=== PATIENT | female | born 1990 | race Caucasian/White ===

== ENCOUNTER 2019-05-21 05:26 | Emergency (ER) | payer SELFPAY ==
[~2019-05-21] VITALS: Ht 170.1 cm; Wt 77.1 kg
[~2019-05-21 05:26] MED LIST: CIPROFLOXACIN500 MG PO; NAPROSYN500 MG PO; PYRIDIUM200 MG PO; ZOVIRAX800 MG PO
== END 2019-05-21 06:58 | disposition home or self-care (01) ==
LOC: ED 05:26
DX: H10.9 Unspecified conjunctivitis (principal); F17.200 Nicotine dependence, unspecified, uncomplicated

== ENCOUNTER → 2021-10-13 | Outpatient (CLI) | payer OTHER | END | disposition home or self-care (01) | LOC: COVID19 16:16 | PROVIDERS: ATTEND Internal Medicine | DX: Z11.52 Encounter for screening for COVID-19 (principal) ==

== ENCOUNTER 2023-03-21 07:53 | Emergency (ER) | payer SELFPAY ==
[~2023-03-21] VITALS: Ht 170.1 cm; Wt 77.1 kg
[2023-03-21] MEDS ORDERED: TOBRADEX 0.3-0.15 ML OPH (08:21)
[2023-03-21] MEDS ORDERED: AMOX-CLAV 875-1 EACH PO (08:21)
== END 2023-03-21 08:28 | disposition home or self-care (01) ==
LOC: ED 07:53
DX: H10.9 Unspecified conjunctivitis (principal); L03.213 Periorbital cellulitis

== ENCOUNTER 2024-07-25 09:15 | Emergency (ER) | payer MEDICAID ==
[~2024-07-25] VITALS: Wt 81.6 kg
[~2024-07-25 09:15] MED LIST changes: +AMOX-CLAV 875-1 EACH PO; +TOBRADEX 0.3-0.15 ML OPH
[2024-07-25] MEDS ORDERED: diphenhydrAMINE hydrochloride 50 MG/ML VIAL IV ONE (09:35)
[2024-07-25] MEDS ORDERED: Dexamethasone Sodium Phospha 20 MG/5 ML VIAL IV ONE (09:35)
[2024-07-25] MEDS ORDERED: FAMOTIDINE 50 ML IV ONE (09:35)
[2024-07-25] MEDS ORDERED: KEFLEX 500 MG E2 CAP PO (09:45)
== END 2024-07-25 12:30 | disposition left against medical advice (07) ==
LOC: ED 09:15
DX: L02.01 Cutaneous abscess of face (principal); Z88.8 Allergy status to other drugs, medicaments and biological substances; Z98.890 Other specified postprocedural states; Z90.89 Acquired absence of other organs; Z53.29 Procedure and treatment not carried out because of patient's decision for other reasons

== ENCOUNTER 2025-01-17 16:55 | Emergency (ER) | payer MEDICAID ==
[~2025-01-17] VITALS: Ht 170.1 cm; Wt 81.6 kg
[~2025-01-17 16:55] MED LIST changes: +KEFLEX 500 MG E2 CAP PO
[2025-01-17] MEDS ORDERED: Tdap Vaccine 0.5 ML SYR (Adult Vaccine) IM ONE (17:35)
[2025-01-17] MEDS ORDERED: MORPHINE Sulfate 2 MG/ML SYR IM ONE (17:35)
[2025-01-17] MEDS ORDERED: Ondansetron Hydrochloride 4 MG TAB PO ONE (17:40)
[2025-01-17] MEDS ORDERED: Lidocaine Hydrochloride 2% 10 ML AMP SC ONE (18:40)
[2025-01-17] MEDS ORDERED: Bacitracin Zinc/Neomycin/Pol 15 GM TUBE T ONE (19:25)
[2025-01-17] MEDS ORDERED: AMOX-CLAV 875-1 EACH PO (19:25)
[2025-01-17] MEDS ORDERED: Acetaminophen/Oxycodone 5 MG/325 MG TABLET PO ONE (19:25)
[2025-01-17] MEDS ORDERED: Amoxicillin/Clavulanate Pota 875 MG TAB PO ONE (19:25)
[2025-01-17] MEDS ORDERED: PERCOCET 5-3251 EACH PO (19:25)
== END 2025-01-17 19:31 | disposition home or self-care (01) ==
LOC: ED 16:55
DX: S61.211A Laceration without foreign body of left index finger without damage to nail, initial encounter (principal); S67.191A Crushing injury of left index finger, initial encounter; Z79.2 Long term (current) use of antibiotics; W23.1XXA Caught, crushed, jammed, or pinched between stationary objects, initial encounter; Y93.89 Activity, other specified; Y92.89 Other specified places as the place of occurrence of the external cause; Y99.8 Other external cause status